=== PATIENT | female | born 1960 | race Caucasian/White ===

== ENCOUNTER 2023-11-05 05:57 | Day surgery (SDC) | payer MEDICARE, BC, SELFPAY ==
[2023-11-05] VITALS (10 sets, daily range): BP systolic 97–154; BP diastolic 61–133; BMI 23.9
[2023-11-05] MEDS: TYLENOL 1000 MG PO (06:45)
[2023-11-05] MEDS: CELEBREX 200 MG PO (06:45)
[2023-11-05] MEDS: NORMOSOL-R 1000 IV (06:46)
[2023-11-05 06:57] LABS: Hematocrit 38.2 % (37.0-47.0); Hemoglobin 12.7 g/dL (12.0-16.0); Mean Corp Hgb Conc. 33.2 g/dL (33.0-37.0); Mean Corpuscular Hgb 30.4 pg (27.0-31.0); Mean Corpuscular Volume 91.4 fL (81.0-99.0); Platelet Count 171 10^3/uL (130-400); Red Blood Cell Count 4.18 10^6/uL (4.20-5.40); Red Cell Dist. Width 14.1 % (11.5-14.5); White Blood Cell Count 5.7 10^3/uL (4.8-10.8)
--- NOTE | 2023-11-05 12:41 | PTCARENOTE ---
pt called at home to let her know that Dr Pugh said to go to PT today, and not use the sling anymore, use the arm as soon as safety allows once shoulder block has worn off and not numb anymore. Srinivasa Kirkland RN
== END 2023-11-05 09:40 | disposition home or self-care (01) ==
LOC: SDS 05:57
PROVIDERS: ATTENDING PHYSICIAN Orthopaedic Surgery Hand Surgery
DX: M75.01 Adhesive capsulitis of right shoulder (principal); M75.41 Impingement syndrome of right shoulder
CPT/HCPCS: 29823; 29825; 23700; 85027; 93005

== ENCOUNTER 2024-02-18 05:58 | Day surgery (SDC) | payer MEDICARE, BC, SELFPAY ==
[2024-02-18] VITALS (7 sets, daily range): BP systolic 87–97; BP diastolic 56–63; BMI 22.7
[2024-02-18] MEDS: CELEBREX 200 MG PO (06:45)
[2024-02-18] MEDS: NORMOSOL-R/PLASMALYTE-A 1000 IV (06:46)
[2024-02-18] MEDS: TYLENOL 1000 MG PO (06:46)
--- NOTE | 2024-02-18 06:49 | PTCARENOTE ---
Patient to be sent to the OR with her nose ring in. aware.
--- NOTE | 2024-02-18 06:50 | PTCARENOTE ---
Anaid taken 02/17/24 am and MD aware and ok with this.
== END 2024-02-18 08:45 | disposition home or self-care (01) ==
LOC: SDS 05:58
PROVIDERS: ATTENDING PHYSICIAN Orthopaedic Surgery Hand Surgery
DX: M75.01 Adhesive capsulitis of right shoulder (principal)
CPT/HCPCS: 23700; 20610